=== PATIENT | female | born 1955 | race Caucasian/White ===

== ENCOUNTER → 2020-01-02 09:30 | Outpatient (BNVA) | payer MEDICAID, SELFPAY | PROVIDERS: Visit Provider Nurse Practitioner Family | DX: D64.9 Anemia, unspecified (principal); R53.83 Other fatigue; E78.2 Mixed hyperlipidemia; Z79.899 Other long term (current) drug therapy; D52.9 Folate deficiency anemia, unspecified; E55.9 Vitamin D deficiency, unspecified; J44.1 Chronic obstructive pulmonary disease with (acute) exacerbation; R91.1 Solitary pulmonary nodule; K21.9 Gastro-esophageal reflux disease without esophagitis | CPT/HCPCS: 80053; 80061; 81001; 82306; 82607; 82746; 83036; 83540; 83735; 84439; 84443; 84481; 85025 ==

== ENCOUNTER → 2020-04-06 11:48 | Outpatient (BNVA) | payer MEDICAID, SELFPAY | PROVIDERS: Visit Provider Nurse Practitioner Family | DX: Z12.4 Encounter for screening for malignant neoplasm of cervix (principal); Z12.31 Encounter for screening mammogram for malignant neoplasm of breast; Z01.419 Encounter for gynecological examination (general) (routine) without abnormal findings; J22 Unspecified acute lower respiratory infection | CPT/HCPCS: 88175 ==

== ENCOUNTER → 2020-05-20 15:28 | Outpatient (BNVA) | payer MEDICAID, SELFPAY | PROVIDERS: PCP Nurse Practitioner Family; Visit Provider Obstetrics & Gynecology | DX: R87.612 Low grade squamous intraepithelial lesion on cytologic smear of cervix (LGSIL) (principal) | CPT/HCPCS: 87624; 88305 ==

== ENCOUNTER → 2021-05-05 11:49 | Outpatient (BNVA) | payer MEDICAID, SELFPAY | PROVIDERS: PCP Nurse Practitioner Family; Visit Provider Nurse Practitioner Family | DX: J44.1 Chronic obstructive pulmonary disease with (acute) exacerbation (principal); D64.9 Anemia, unspecified; Z13.6 Encounter for screening for cardiovascular disorders; E55.9 Vitamin D deficiency, unspecified; Z79.899 Other long term (current) drug therapy | CPT/HCPCS: 80053; 80061; 81003; 82306; 82607; 82746; 83036; 83540; 84443; 85025 ==

== ENCOUNTER → 2021-06-07 12:04 | Outpatient (BNVA) | payer MEDICAID, SELFPAY | PROVIDERS: PCP Nurse Practitioner Family; Visit Provider Internal Medicine | DX: K92.1 Melena (principal); Z01.812 Encounter for preprocedural laboratory examination; Z20.822 Contact with and (suspected) exposure to COVID-19 | CPT/HCPCS: 87635 ==

== ENCOUNTER 2021-06-14 07:50 | Day surgery (SDC) | payer MEDICAID, SELFPAY ==
--- NOTE | 2021-06-14 08:02 | ANES.PREANE2 ---
Pre-Anesthetic Assessment Pre-Anesthetic Assessment: Height/Weight: Height 1.73 m Weight 83.915 kg Proposed Procedure: Operation Date: 06/14/21 09:30 Proposed Procedures p Colonoscopy 33907 K92.1(Not Applicable) - Mayank Florian MD Was Beta Domingo taken within 24 hours: N/A Was Clonidine taken within 24 hours: N/A Social: Social History: Tobacco and No alcohol Packs per day: 1 Exam: Pre-Anes Outpt Exam: alert, oriented x 3 and clear to auscultation bilaterally Airway: Submandibular: WNL Cervical ROM: WNL MP: 1 Dentition: Full History/ROS: No significant complaints Pulmonary: Pulmonary: COPD CV/HEM: CV/HEM: None reported : : None reported Hepatic: Hepatic: None reported GI: GI: None reported Metabolic: Metabolic: None reported Musc/skel: Musc/skel: None reported Neuropsych: Neuropsych: None reported Anesthetic Plan: ASA status: 2 Anesthesia: Anesthesia Evaluation and MAC Risk of > 500 ml blood loss (7ml/kg in children): No PFSH Anesthesia PFSH: Medical History Cellulitis COPD (chronic obstructive pulmonary disease) COPD exacerbation Cough Environmental and seasonal allergies Fatigue GERD (gastroesophageal reflux disease) States that she really does not have acid reflux however takes medication for acidity ever since she has had throat surgery. H/O anaphylactic shock Hypertension screen Lower respiratory tract infection Medication management No pertinent past medical history Patient denies history of: diabetes, hertension, seizures, DVT/PE PCP: ANNIE Sanders Vitamin D deficiency Surgical History S/P cervical spinal fusion 2015 S/P rotator cuff repair 2013---right side-open procedure -[place], [place] Status post excision of vocal cord nodule 2002 Status post LEEP (loop electrosurgical excision procedure) of cervix 1997---LEEP procedure performed in [place] Family History Mother Diabetes Hypertension Uterine cancer Diagnosed in her 80s Other Lung disease Denies family history of Colon cancer Ovarian cancer Heart disease Hyperlipidemia Breast cancer Thyroid condition Stroke Social History Smoking and tobacco status: current every day smoker cigarettes Packs smoked per day: 1 Years cigarettes smoked: 40 Quit status (tobacco): quit date established Planned quit date: 06/18/20 Second hand smoke exposure: No Smoking risk assessment/counseling performed?: Yes Alcohol intake: never Lives independently: Yes Household members: none Marital status: Single Current occupational status: disabled History of recent travel: No Current gender identity: Female Data Anesthesia Cardiac Studies: No Data to Display
[2021-06-14 08:33] VITALS: BP 107/73; PULSE 88; RESP 18; TEMP 36.4; O2SAT 95
[2021-06-14] MEDS: sodium chloride 0.9% 1,000 ML 30 ML IV (08:55)
--- NOTE | 2021-06-14 09:20 | W.PM.OPSFHP ---
Same Day Surgery H&P Indication for Procedure/HPI DATE OF PROCEDURE: June 14, 2021 CHIEF COMPLAINT/INDICATIONFOR SURGICAL PROCEDURE: Hematochezia PREOP DIAGNOSIS: bleeding PLANNED PROCEDRUE: Operation Date: 06/14/21 09:30 Proposed Procedures p Colonoscopy 83524 K92.1(Not Applicable) - Mayank Florian MD Medications/Allergies* Allergies/Adverse Reactions Allergy/AdvReac Type Severity Reaction Status Date / Time No Known Allergies Allergy Verified 06/11/21 09:51 Current Medications: Generic Name Dose Route Start Last Admin Trade Name Freq PRN Reason Stop Dose Admin Sodium Chloride 1,000 mls @ 30 mls/hr 06/14/21 08:30 06/14/21 08:55 Sodium Chloride 0.9% IV 30 mls/hr .Q24H ASHWINI Administration Pertinent History/Comorbid Conditions* Medical History (Updated 06/03/21 @ 10:19 by Mayank Florian MD) Cellulitis COPD (chronic obstructive pulmonary disease) COPD exacerbation Cough Environmental and seasonal allergies Fatigue GERD (gastroesophageal reflux disease) States that she really does not have acid reflux however takes medication for acidity ever since she has had throat surgery. H/O anaphylactic shock Hypertension screen Lower respiratory tract infection Medication management No pertinent past medical history Patient denies history of: diabetes, hertension, seizures, DVT/PE PCP: ANNIE Sanders Vitamin D deficiency Surgical History (Updated 05/19/20 @ 06:48 by Santiago Means MD) S/P cervical spinal fusion 2015 S/P rotator cuff repair 2013---right side-open procedure -[place], [place] Status post excision of vocal cord nodule 2002 Status post LEEP (loop electrosurgical excision procedure) of cervix 1997---LEEP procedure performed in [place] Family History (Updated 05/18/20 @ 08:56 by Vannesa Booker RN) Diabetes Mother Lung disease Hypertension Mother Uterine cancer Mother Diagnosed in her 80s Denies family history of Colon cancer Ovarian cancer Heart disease Hyperlipidemia Breast cancer Thyroid condition Stroke Social History Smoking and tobacco status: current every day smoker cigarettes Packs smoked per day: 1 Years cigarettes smoked: 40 Quit status (tobacco): quit date established Planned quit date: 06/18/20 Second hand smoke exposure: No Smoking risk assessment/counseling performed?: Yes Alcohol intake: never Lives independently: Yes Household members: none Marital status: Single Current occupational status: disabled History of recent travel: No Current gender identity: Female Pertinent Exam Findings alert, oriented x 3, clear to auscultation bilaterally, regular rate & rhythm, operative site marked and procedure specific exam findings Recommendations Surgery/Procedure today Coding Level of Care Code Acute Route Cdl Driver for Lynette Bella
[2021-06-14 09:41] VITALS: BP 85/46; PULSE 83; RESP 16; TEMP 36.1; O2SAT 95
[2021-06-14 09:59] VITALS: BP 81/60; PULSE 86; RESP 16; O2SAT 91
[2021-06-14 10:03] VITALS: BP 91/56; PULSE 98; RESP 18; O2SAT 95
--- NOTE | 2021-06-14 16:30 | ANE.PACU2 ---
Inpatient post-anesthesia follow up: Airway intact: Yes Vital signs: Temperature 97 F Pulse Rate 98 Respiratory Rate 18 Blood Pressure 91/56 Pulse Oximetry 95 Oxygen Delivery Me thod Room Air Oxygen Flow Rate 4 Fraction of Inspir ed Oxygen Hydration adequate: Yes Nausea and vomiting: No Pain level: 1 Mental status: Baseline
== END 2021-06-14 10:25 | disposition home or self-care (01) ==
PROVIDERS: PCP Nurse Practitioner Family; Visit Provider Internal Medicine
PROC: 0DJD8ZZ Inspection of Lower Intestinal Tract, Via Natural or Artificial Opening Endoscopic (ICD-10-PCS; CPT 45378; principal; 2021-06-14 09:30)
DX: K92.1 Melena (principal); D12.5 Benign neoplasm of sigmoid colon; K57.30 Diverticulosis of large intestine without perforation or abscess without bleeding; J44.9 Chronic obstructive pulmonary disease, unspecified; K21.9 Gastro-esophageal reflux disease without esophagitis; Z82.49 Family history of ischemic heart disease and other diseases of the circulatory system; Z83.3 Family history of diabetes mellitus; F17.210 Nicotine dependence, cigarettes, uncomplicated
CPT/HCPCS: 45385; 88305; 96360; J2704; J7030

== ENCOUNTER → 2022-02-04 12:05 | Outpatient (BNVA) | payer MEDICAID, SELFPAY | PROVIDERS: PCP Nurse Practitioner Family; Visit Provider Nurse Practitioner | DX: J44.1 Chronic obstructive pulmonary disease with (acute) exacerbation (principal); K57.92 Diverticulitis of intestine, part unspecified, without perforation or abscess without bleeding; R87.619 Unspecified abnormal cytological findings in specimens from cervix uteri | CPT/HCPCS: 88175 ==

== ENCOUNTER → 2022-08-16 14:33 | Outpatient (BNVA) | payer MEDICAID, SELFPAY | PROVIDERS: PCP Family Medicine; Visit Provider Family Medicine | DX: R68.89 Other general symptoms and signs (principal); R91.8 Other nonspecific abnormal finding of lung field; J18.9 Pneumonia, unspecified organism; J44.1 Chronic obstructive pulmonary disease with (acute) exacerbation; Z09 Encounter for follow-up examination after completed treatment for conditions other than malignant neoplasm | CPT/HCPCS: 87400 ==

== ENCOUNTER → 2023-01-25 14:35 | Outpatient (BNVA) | payer MEDICAID, SELFPAY | PROVIDERS: PCP Family Medicine; Visit Provider Family Medicine | DX: G47.00 Insomnia, unspecified (principal); E55.9 Vitamin D deficiency, unspecified; J44.9 Chronic obstructive pulmonary disease, unspecified; D64.9 Anemia, unspecified; K21.9 Gastro-esophageal reflux disease without esophagitis; M54.2 Cervicalgia | CPT/HCPCS: 80048; 80061; 83036; 84443 ==

== ENCOUNTER → 2023-03-20 13:41 | Outpatient (BNVA) | payer MEDICAID, SELFPAY | PROVIDERS: PCP Family Medicine; Visit Provider Nurse Practitioner | DX: M79.645 Pain in left finger(s) (principal) | CPT/HCPCS: 73130 ==

== ENCOUNTER → 2023-04-03 16:00 | Outpatient (BNVA) | payer MEDICAID, SELFPAY | PROVIDERS: PCP Family Medicine; Visit Provider Obstetrics & Gynecology | DX: Z01.419 Encounter for gynecological examination (general) (routine) without abnormal findings (principal); R87.612 Low grade squamous intraepithelial lesion on cytologic smear of cervix (LGSIL) | CPT/HCPCS: 87624 ==

== ENCOUNTER → 2023-12-20 08:16 | Outpatient (BNVA) | payer MEDICAID, SELFPAY | PROVIDERS: PCP Family Medicine; Visit Provider Nurse Practitioner Family | DX: F41.9 Anxiety disorder, unspecified (principal); K21.9 Gastro-esophageal reflux disease without esophagitis; J43.2 Centrilobular emphysema; R53.83 Other fatigue; Z79.899 Other long term (current) drug therapy; Z13.6 Encounter for screening for cardiovascular disorders; D64.9 Anemia, unspecified | CPT/HCPCS: 80053; 80061; 81003; 82607; 82746; 83036; 83550; 84443; 85025 ==

== ENCOUNTER → 2023-12-21 13:47 | Outpatient (BNVA) | payer MEDICAID, SELFPAY | PROVIDERS: PCP Family Medicine; Visit Provider Nurse Practitioner Family | DX: F41.9 Anxiety disorder, unspecified (principal); K21.9 Gastro-esophageal reflux disease without esophagitis; J43.2 Centrilobular emphysema; R53.83 Other fatigue; Z79.899 Other long term (current) drug therapy; Z13.6 Encounter for screening for cardiovascular disorders; D64.9 Anemia, unspecified; R31.9 Hematuria, unspecified | CPT/HCPCS: 87086 ==

== ENCOUNTER → 2024-01-10 12:47 | Outpatient (BNVA) | payer MEDICAID, SELFPAY | PROVIDERS: PCP Family Medicine; Visit Provider Nurse Practitioner Family | DX: R31.9 Hematuria, unspecified (principal) | CPT/HCPCS: 87086 ==

== ENCOUNTER → 2024-04-08 14:51 | Outpatient (BNVA) | payer MEDICAID, SELFPAY | PROVIDERS: PCP Family Medicine; Visit Provider Obstetrics & Gynecology | DX: Z12.4 Encounter for screening for malignant neoplasm of cervix (principal); Z01.419 Encounter for gynecological examination (general) (routine) without abnormal findings; R87.612 Low grade squamous intraepithelial lesion on cytologic smear of cervix (LGSIL) | CPT/HCPCS: 87624 ==

== ENCOUNTER → 2025-03-19 14:25 | Outpatient (BNVA) | payer MEDICAID, SELFPAY | PROVIDERS: PCP Family Medicine; Visit Provider Nurse Practitioner Family | DX: Z13.6 Encounter for screening for cardiovascular disorders (principal); E55.9 Vitamin D deficiency, unspecified; G47.00 Insomnia, unspecified; R53.83 Other fatigue; R61 Generalized hyperhidrosis; J43.2 Centrilobular emphysema; J44.1 Chronic obstructive pulmonary disease with (acute) exacerbation | CPT/HCPCS: 80053; 80061; 81003; 82306; 83036; 84443; 85025 ==

== ENCOUNTER → 2025-05-05 15:23 | Outpatient (BNVA) | payer MEDICAID, SELFPAY | PROVIDERS: PCP Family Medicine; Visit Provider Nurse Practitioner Family | DX: M25.569 Pain in unspecified knee (principal); G89.29 Other chronic pain; M25.761 Osteophyte, right knee | CPT/HCPCS: 73562 ==

== ENCOUNTER → 2025-07-29 09:34 | Outpatient (BNVA) | payer MEDICAID, SELFPAY | PROVIDERS: PCP Family Medicine; Visit Provider Nurse Practitioner Family | DX: J44.9 Chronic obstructive pulmonary disease, unspecified (principal); M51.34 Other intervertebral disc degeneration, thoracic region | CPT/HCPCS: 71046 ==